=== PATIENT | male | born 1980 | race Caucasian/White ===

== ENCOUNTER 2016-09-06 02:36 | Emergency (ER) | payer MEDICAID ==
[2016-09-06 03:01] VITALS: BP 138/85; PULSE 101; RESP 18; TEMP 98.2; O2SAT 100
--- NOTE | 2016-09-06 03:04 | ED PDOC ---
HPI: Psych/Substance Abuse Time Seen by Provider: 09/06/16 02:41 Chief Complaint (Provider): intoxicated History Per: Patient History/Exam Limitations: no limitations Onset/Duration Of Symptoms: Mins Current Symptoms Are (Timing): Still Present Additional Complaint(s): 36yo male presents to the ED via EMS for eval of intoxication. Denies any medical or psychiatric complaints. Patient is in the company of a sober friend. Past Medical History Reviewed: Historical Data, Nursing Documentation, Vital Signs Vital Signs: Last Vital Signs Temp 98.2 F 09/06/16 02:57 Pulse 101 H 09/06/16 02:57 Resp 18 09/06/16 02:57 BP 138/85 09/06/16 02:57 Pulse Ox 100 09/06/16 02:57 - Medical History PMH: Depression Denies: Atrial Fibrillation, Cardia Arrhythmia, CHF, Diabetes, Hepatitis, HIV , HTN, Hypercholesterolemia, Mitral Valve Prolapse, Peripheral Edema, Chronic Kidney Disease, Seizures, Sexually Transmitted Disease - Surgical History Surgical History: No Surg Hx Denies: Pacemaker - Family History Family History: States: No Known Family Hx - Social History Current smoker - smoking cessation education provided: No Alcohol: Occasional Drugs: Denies - Home Medications Home Medications: Ambulatory Orders Medication Instructions Recorded buPROPion SR [Wellbutrin SR 150 MG] 150 mg PO DAILY #30 tab 08/25/14 - Allergies Allergies/Adverse Reactions: Allergies Allergy/AdvReac Type Severity Reaction Status Date / Time Penicillins Allergy SWELLING Verified 09/06/16 02:56 Review of Systems ROS Statement: Except As Marked, All Systems Reviewed And Found Negative Physical Exam - Reviewed Nursing Documentation Reviewed: Yes Vital Signs Reviewed: Yes - Physical Exam Appears: Positive for: Well, No Acute Distress Head Exam: Positive for: ATRAUMATIC, NORMAL INSPECTION, NORMOCEPHALIC Skin: Positive for: Normal Color, Warm, Dry Eye Exam: Positive for: Normal appearance, EOMI, PERRL ENT: Positive for: Normal ENT Inspection Neck: Positive for: Normal, Painless ROM, Supple Cardiovascular/Chest: Positive for: Regular Rate, Rhythm. Negative for: Murmur , Tachycardia Respiratory: Positive for: Normal Breath Sounds. Negative for: Wheezing, Respiratory Distress Gastrointestinal/Abdominal: Positive for: Normal Exam, Bowel Sounds, Soft. Negative for: Tenderness Back: Positive for: Normal Inspection Extremity: Positive for: Normal ROM. Negative for: Deformity, Swelling Neurologic/Psych: Positive for: Alert, Oriented (x3), Gait (steady ), Other ( clear speech ). Negative for: Motor/Sensory Deficits - ECG O2 Sat by Pulse Oximetry: 100 Pulse Ox Interpretation: Normal (RA) Medical Decision Making Medical Decision Makin: Impression: 36yo male presents for eval of intoxication Plan: Patient AAOx3 ambulating with steady gait and clear speech and stable for d/c in company of sober friend. Dx: alcohol use stable Scribe Attestation: Documented by Sandy Angel acting as a scribe for Christian Mack MD. Provider Scribe Attestation: All medical record entries made by the Scribe were at my direction and personally dictated by me. I have reviewed the chart and agree that the record accurately reflects my personal performance of the history, physical exam, medical decision making, and the department course for this patient. I have also personally directed, reviewed, and agree with the discharge instructions and disposition. Disposition - Clinical Impression Clinical Impression: Alcohol use - Patient ED Disposition Is Patient to be Admitted: No - Disposition Disposition: Routine/Home Disposition Time: 03:00 Condition: STABLE
== END 2016-09-06 03:13 | disposition home or self-care (01) ==
LOC: H.ER 02:36
DX: Z78.9 Other specified health status (principal); Z88.0 Allergy status to penicillin

== ENCOUNTER 2017-01-16 01:53 | Inpatient (IN) | payer MEDICAID ==
--- NOTE | 2017-01-16 02:17 | ED PDOC ---
HPI: Psych/Substance Abuse Time Seen by Provider: 01/16/17 01:59 Chief Complaint (Nursing): Psychiatric Evaluation Chief Complaint (Provider): Psychiatric Evaluation ED Caveat: Uncooperative Suicide/Self Injury Attempted (Context): Other (Jumping in front of cars) Additional History Per: EMS, Girlfriend, Law Enforcement Additional Complaint(s): 36 year old male brought in by [employer] and EMS presents to ED status post suicidal ideation and has a past medical history of depression. [employer] reports patient was attempting to jump in front of cars to commit suicide. Wide confirms that patient has attempted this before. Patient presents to ED in a state of agitation and refuses to answer questions. PCP: DARREN Past Medical History Reviewed: Historical Data, Nursing Documentation, Vital Signs Vital Signs: Last Vital Signs Temp 98.4 F 01/16/17 02:01 Pulse 100 H 01/16/17 02:01 Resp 18 01/16/17 02:01 BP 134/57 L 01/16/17 02:01 Pulse Ox 100 01/16/17 02:01 - Medical History PMH: Depression Denies: Atrial Fibrillation, Cardia Arrhythmia, CHF, Diabetes, Hepatitis, HIV , HTN, Hypercholesterolemia, Mitral Valve Prolapse, Peripheral Edema, Chronic Kidney Disease, Seizures, Sexually Transmitted Disease - Surgical History Surgical History: Denies: Pacemaker - Family History Family History: States: Unknown Family Hx - Home Medications Home Medications: Ambulatory Orders Medication Instructions Recorded buPROPion SR [Wellbutrin SR 150 MG] 150 mg PO DAILY #30 tab 08/25/14 - Allergies Allergies/Adverse Reactions: Allergies Allergy/AdvReac Type Severity Reaction Status Date / Time Penicillins Allergy SWELLING Verified 01/16/17 02:01 Review of Systems Review Of Systems: ROS cannot be obtained secondary to pt's inabilty to answer questions. (Patient is uncooperative) Physical Exam - Reviewed Nursing Documentation Reviewed: Yes Vital Signs Reviewed: Yes - Physical Exam Appears: Positive for: Non-toxic, No Acute Distress Head Exam: Positive for: ATRAUMATIC, NORMOCEPHALIC Skin: Positive for: Normal Color, Warm, Dry Eye Exam: Positive for: Normal appearance, EOMI, PERRL ENT: Positive for: Normal ENT Inspection Neck: Positive for: Normal, Painless ROM, Supple Cardiovascular/Chest: Positive for: Regular Rate, Rhythm, Tachycardia Respiratory: Positive for: Normal Breath Sounds. Negative for: Respiratory Distress Gastrointestinal/Abdominal: Positive for: Normal Exam, Soft. Negative for: Tenderness Back: Positive for: Normal Inspection Extremity: Positive for: Normal ROM. Negative for: Deformity Neurologic/Psych: Positive for: Alert, Oriented, Mood/Affect (agitated). Negative for: Motor/Sensory Deficits - Laboratory Results Result Diagrams: 01/16/17 02:37 01/16/17 02:37 - ECG O2 Sat by Pulse Oximetry: 100 (RA) Pulse Ox Interpretation: Normal Medical Decision Making Medical Decision Makin Initial impression: suicidal ideation, agitation Initial plan: * Acetaminophen * EtOH serum * Labs * UDrug screen * Salicylate * Ativan 2mg IM * Haldol 5mg IM * 1:1 OBS * ED OBS ADMISSION * UA All further documentation will take place in ED OBS section of the chart. Scribe Attestation: Documented by Rama Quezada acting as a scribe for Desmond Kelly MD. Scribe Attestation: All medical record entries made by the Scribe were at my direction and personally dictated by me. I have reviewed the chart and agree that the record accurately reflects my personal performance of the history, physical exam, medical decision making, and the department course for this patient. I have also personally directed, reviewed, and agree with the discharge instructions and disposition. ED OBSERVATION Date of observation admission: 01/16/17 Time of observation admission: 02:07 - Observation admission statement Patient is being placed in observation because:: ED OBS admission due to sedation because of agitation - Goals of Observation Goals of observation are:: sobriety - Progress Note Progress Note: 01/16/17 03:10 Patient is resting comfortably in room. Vitals stable. 01/16/17 04:41 Patient is resting comfortably in room. Vitals stable. 01/16/17 05:56 Patient resting comfortably. Vitals stable. 01/16/17 07:00 Patient will be signed out to Dr. Jean Baptiste pending sobriety and crisis evaluation. Disposition - Clinical Impression Clinical Impression: Depression, Alcohol abuse - Disposition Disposition Time: 02:07 Condition: IMPROVED Patient Signed Over To: Richard Jean Baptiste Jr. Handoff Comments: Pending sobriety and crisis evaluation - Pt Status Changed To: Hospital Disposition Of: Observation - POA Present On Arrival: None
[2017-01-16 02:40] LABS: BASO % 0.5 % (0.0-2.0); EOS % 0.7 % (0.0-4.0); HEMATOCRIT 47.8 % (35.0-51.0); LYMPH % 16.4 % (20.0-40.0); MEAN CELL VOLUME 93.2 fl (80.0-94.0); MEAN CORPUSCULAR HEMOGLOBIN 31.2 pg (27.0-31.0); MEAN CORPUSCULAR HGB CONC 33.4 g/dL (33.0-37.0); MEAN PLATELET VOLUME 8.6 fl (7.2-11.7); MONO # 0.5 K/uL (0.0-0.8); MONO % 7.4 % (0.0-10.0); NEUT # 4.6 K/uL (1.8-7.0); NRBC % 0.1 % (0.0-0.0); RED CELL DISTRIBUTION WIDTH 14.1 % (11.5-14.5); WHITE BLOOD COUNT 6.1 K/uL (4.8-10.8)
[2017-01-16 03:00] LABS: BLOOD UREA NITROGEN 8 mg/dl (9-20); GFR AFRICAN-AMERICAN > 60; GLUCOSE,RANDOM 106 mg/dL (75-110); POTASSIUM 3.3 MMOL/L (3.6-5.0); SODIUM 144 mmol/l (132-148)
[2017-01-16 03:01] LABS: ALCOHOL SERUM 237 mg/dl (0-10); CALCIUM 9.2 mg/dL (8.4-10.2); CARBON DIOXIDE 21 mmol/L (22-30); CHLORIDE 108 mmol/L (98-107)
--- NOTE | 2017-01-16 07:15 | ED PDOC ---
- Laboratory Results Result Diagrams: 01/16/17 02:37 01/16/17 02:37 - ECG O2 Sat by Pulse Oximetry: 100 (RA) Pulse Ox Interpretation: Normal Medical Decision Making Medical Decision Making: Time: 07:00 --Patient endorsed from Dr. Kelly to me. --Pending crisis evaluation once clinically sober. --Ed observations was ordered. All further documentation can be seen in ED Obs section of chart. --Pt is arousable w/ no complaints. Scribe Attestation: Documented by Etelvina Wilkins, acting as a scribe for Richard Jean Baptiste MD. Provider Scribe Attestation: All medical record entries made by the Scribe were at my direction and personally dictated by me. I have reviewed the chart and agree that the record accurately reflects my personal performance of the history, physical exam, medical decision making, and the department course for this patient. I have also personally directed, reviewed, and agree with the discharge instructions and disposition. Disposition - Clinical Impression Clinical Impression: Depression, Alcohol abuse - POA Present On Arrival: None - Disposition Disposition: Transfer of Care Disposition Time: 14:11 Condition: IMPROVED ED OBSERVATION Discharge: Yes Date of observation admission: 01/16/17 Time of observation admission: 02:07 - Observation admission statement Patient is being placed in observation because:: ETOH ingestion. - Goals of Observation Goals of observation are:: Pending clinical sobriety - Progress Note Progress Note: 01/16/17 08:30 --Patient resting comfortably, pending clinical sobriety to complete crisis evaluation. 01/16/17 10:10 --Patient resting comfortably, pending clinical sobriety to complete crisis evaluation. 01/16/17 11:30 --Patient resting comfortably, pending clinical sobriety to complete crisis evaluation. 01/16/17 13:00 --Patient resting comfortably, pending clinical sobriety to complete crisis evaluation. Physician Patient Turnover - . Patient Signed Over To: Spencer Lamb Handoff Comments: To follow up results of UA and UDS. Then [facility] screeners will assess the pt.
--- NOTE | 2017-01-16 14:12 | ED PDOC ---
- Laboratory Results Result Diagrams: 01/16/17 02:37 01/16/17 02:37 - ECG O2 Sat by Pulse Oximetry: 100 (RA) Pulse Ox Interpretation: Normal Medical Decision Making Medical Decision Makin:12 Patient signed out to me from Dr. Jean Baptiste. Pending [facility] screening. Vital signs are stable. Labs reviewed. In my opinion there are no current acute medical conditions that contraindicate the placement of this patient in a psychiatric unit. Disposition Counseled Patient/Family Regarding: Studies Performed, Diagnosis - Clinical Impression Clinical Impression: Depression, Alcohol abuse - POA Present On Arrival: None - Disposition Disposition: Admitted as In-Patient Disposition Time: 19:00 Condition: FAIR ED OBSERVATION Discharge: Yes Date of observation admission: 01/16/17 Time of observation admission: 02:07 - Observation admission statement Patient is being placed in observation because:: ED OBS admission due to sedation because of agitation - Goals of Observation Goals of observation are:: Sobriety - Progress Note Progress Note: 01/16/17 16:00 Patient is stable and resting comfortably. Pending [facility] screening. 01/16/17 17:35 Patient is stable and resting comfortably. Pending [facility] screening.
--- NOTE | 2017-01-16 14:30 | ED PDOC ---
- Laboratory Results Result Diagrams: 01/16/17 02:37 01/16/17 02:37 - ECG O2 Sat by Pulse Oximetry: 100 (RA) Disposition - Clinical Impression Clinical Impression: Depression, Alcohol abuse - Disposition Condition: IMPROVED ED OBSERVATION Discharge: Yes
[2017-01-16 18:14] LABS: RBC URINE 3 /hpf (0-3); URINE BACTERIA RARE (<OCC); URINE BILIRUBIN NEGATIVE (NEGATIVE); URINE BLOOD NEGATIVE (NEGATIVE); URINE COLOR AMBER (YELLOW); URINE GLUCOSE (UA) NEG (Normal); URINE KETONE NEGATIVE (NEGATIVE); URINE LEUKOCYTE ESTERASE NEG Leu/uL (Negative); URINE PROTEIN 30 mg/dL (NEGATIVE); URINE URIC ACID CRYSTALS RARE /hpf (<OCC); WBC URINE 2 /hpf (0-5)
[2017-01-16] MEDS ORDERED: Alum-Mag Hydrox-Simethicone Susp (30 mL) PO PRN (21:00)
[2017-01-16] MEDS ORDERED: DiphenhydrAMINE 50 mg/ml Inj IM PRN (21:00)
[2017-01-16] MEDS ORDERED: Magnesium Hydroxide Susp 30 ml UD PO PRN (21:00)
[2017-01-16 21:31] VITALS: O2SAT 100
--- NOTE | 2017-01-16 22:07 | PCM.BM ---
<Cat Cordero - Last Filed: 01/16/17 22:05> Treatment Plan Problems - Problems identified on initial assessmt Medication nonadherance Date Initiated: 01/16/17 Time Initiated: 22:05 Assessment reference: NA Status: Active Treatment assets and liabiliti Patient Assests: cooperative, ADL independent, physically healthy, negotiates basic needs Patient Liabilities: other (alcohol abuse) - Milieu Protocol Maintain good personal hygiene: daily Encourage regular showers, daily Remind patient to perform daily oral care, daily Assist patient to perform ADL's Maintain personal safety: every shift Educate patient to report safety concerns to staff, every shift Monitor environment for contraband/sharps Medication safety: Monitor for expected outcome, potential side effects: every shift, Assess barriers to learning: daily, Assess readiness for medication education: every shift <Charmaine Tineo - Last Filed: 01/19/17 10:37> Treatment assets and liabiliti Patient Assests: adapts well, cooperative, resourceful, self-reliant, ADL independent, physically healthy, negotiates basic needs, good past tx response Patient Liabilities: financial problems, relationship conflicts, substance abuse Family Contact Family involvement: Family/SO is involved Family contact: Patient agrees to contact, Family has been contacted by patient , Telephone contact initiated by staff Family contact name: Selina() ([phone]) Family contacted how many times per week?: 1 Family contact comment: Patient has provided consent for . has contacted chief writer to discuss precursors to hospitalization, patients progress on 3NP and discharge plan. Please see note. - Goals for Treatment Patient goals for treatment: Patient to continue stabilization on 3NP through medication management and group/supportive therapy. Patient to be encouraged to attend 3-6 groups/weekly to develop effective coping skills, improve insight and promote compliance, sobriety and self-esteem. Patient currently minimizing symptoms/ETOH abuse. Discharge/Continuing Care - Education Needs Education Needs: Family Medication, Family Diagnosis/Disease Process, Family Community resources, Family Aftercare Safety Plan, Patient Medication, Patient Diagnosis/Disease Process, Patient Coping Skills, Patient Community resources, Patient Aftercare Safety Plan - Discharge Discharge Criteria: Tolerates medication w/o severe side effects, Free of Suicidal thoughts, Free of agitation, No longer exhibiting s/s of withdrawal, Reduction of target symptoms Discharge to:: Home, With Family - Treatment Team Participation Discussed with Family/SO: No Was Patient/Family/SO present at Treatment Team Meeting: No
--- NOTE | 2017-01-17 12:29 | CP.PCM.CON ---
History of Present Illness - History of Present Illness History of Present Illness: Reason for Consult: per hospital protocol CC:depression HPI: 36 year old male with no past medical history admitted to psych for depression. No other complaints at this time. HD stable, NAD. ROS: per HPI, 12 systems reviewed and negative PMH: denies PSH: denies FH: denies SH: denies tobacco, ETOH, IVDU Meds: as below Allergies: NKDA Vitals: reviewed and currently stable Exam: GEN: WDWN, alert, cooperative HEENT: NCAT, PERRL, EOMI NECK: supple, no JVD, no lymphadenopathy CARDIAC: +S1S2 RRR LUNG: CTAB No WRR ABD: SOFT NT ND BSX4 NO MASSES NO HSM EXT: +pedal pulses, equal strength NEURO: AAOx3 SKIN warm, dry PSYCH normal mood, normal affect Labs: 01/16/17 02:37 01/16/17 02:37 Assessment and Plan: Depression Management per Psychiatry Team Past Patient History - Infectious Disease Hx of Infectious Diseases: None - Tetanus Immunizations Tetanus Immunization: Unknown - Past Social History Smoking Status: Heavy Smoker > 10 Cigarettes Daily - CARDIAC Hx Cardiac Disorders: No - PULMONARY Hx Respiratory Disorders: No - NEUROLOGICAL Hx Neurological Disorder: No - HEENT Hx HEENT Problems: No - RENAL Hx Chronic Kidney Disease: No - ENDOCRINE/METABOLIC Hx Endocrine Disorders: No - HEMATOLOGICAL/ONCOLOGICAL Hx Blood Disorders: No - INTEGUMENTARY Hx Dermatological Problems: No - MUSCULOSKELETAL/RHEUMATOLOGICAL Hx Musculoskeletal Disorders: No - GASTROINTESTINAL Hx Gastrointestinal Disorders: No - GENITOURINARY/GYNECOLOGICAL Hx Genitourinary Disorders: No - PSYCHIATRIC Hx Depression: Yes Hx Emotional Abuse: No Hx Physical Abuse: No Hx Substance Use: Yes (denies MJ use but tox + MJ) - SURGICAL HISTORY Hx Surgeries: No - ANESTHESIA Hx Anesthesia: No Hx Anesthesia Reactions: No Meds Allergies/Adverse Reactions: Allergies Allergy/AdvReac Type Severity Reaction Status Date / Time Penicillins Allergy SWELLING Verified 01/16/17 02:01 - Medications Medications: Current Medications Acetaminophen (Tylenol 325mg Tab) 650 mg PO Q4 PRN PRN Reason: T>101;headache;dizziness,pain Al Hydrox/Mg Hydrox/Simethicone (Maalox Plus 30 Ml) 30 ml PO Q4 PRN PRN Reason: Dyspepsia Diphenhydramine HCl (Benadryl) 50 mg IM Q6 PRN PRN Reason: Extrapyramidal S/S Unable PO Diphenhydramine HCl (Benadryl) 50 mg PO Q6 PRN PRN Reason: Extrapyramidal Symptoms Diphenhydramine HCl (Benadryl) 50 mg PO HS PRN PRN Reason: Sleep Haloperidol (Haldol) 5 mg PO Q4 PRN PRN Reason: Agitation Haloperidol Lactate (Haldol) 5 mg IM Q4 PRN PRN Reason: Agitation, Unable to Take PO Lorazepam (Ativan) 2 mg IM Q4 PRN PRN Reason: Anxiety/Agitation,Unable PO Lorazepam (Ativan) 2 mg PO Q4 PRN PRN Reason: Anxiety/Agitation Magnesium Hydroxide (Milk Of Magnesia) 30 ml PO HS PRN PRN Reason: Constipation Results - Vital Signs Recent Vital Signs: Last Vital Signs Temp 97.3 F L 01/17/17 09:00 Pulse 54 L 01/16/17 21:02 Resp 18 01/17/17 09:00 BP 120/70 01/17/17 09:00 Pulse Ox 100 01/16/17 21:31 - Labs Result Diagrams: 01/16/17 02:37 01/16/17 02:37 Labs: Laboratory Results - last 24 hr 01/17/17 08:03 Triglycerides 53 Cholesterol 137 LDL Cholesterol Direct 46 HDL Cholesterol 76 H
[2017-01-17 12:48] LABS: T4 8.64 ug/dl (5.5-11.0)
[2017-01-17 13:02] LABS: THYROID STIMULATING HORMONE 5.49 mIU/ML (0.46-4.68)
--- NOTE | 2017-01-17 17:59 | PCM.PSYCH ---
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 reports were of question as to whether to pt was having crisis after possible argument with ex . pt denies having any argument with ex . pt reports that has an ex of 16 years and then of 4 years both are . pt reports it was he who from both because of different outlooks on life. denies believing he has etoh problem, denies use of other substances. reports that was [place], graduated school, worked various jobs, most recent [employer]. Does admit stressors related to not always being able to provide for family as he would wish. Reports was living with mother due to separation. denies previous psychiatric treatment. Current Medications: Active Medications Generic Name Dose Route Start Last Admin Trade Name Bradleyq PRN Reason Stop Dose Admin Acetaminophen 650 mg 01/16/17 21:00 Tylenol 325mg Tab PO Q4 PRN T>101;headache;dizziness,pain Al Hydrox/Mg Hydrox/Simethicone 30 ml 01/16/17 21:00 Maalox Plus 30 Ml PO Q4 PRN Dyspepsia Diphenhydramine HCl 50 mg 01/16/17 21:00 Benadryl IM Q6 PRN Extrapyramidal S/S Unable PO Diphenhydramine HCl 50 mg 01/16/17 21:00 Benadryl PO Q6 PRN Extrapyramidal Symptoms Diphenhydramine HCl 50 mg 01/16/17 21:07 Benadryl PO HS PRN Sleep Haloperidol 5 mg 01/16/17 21:00 Haldol PO Q4 PRN Agitation Haloperidol Lactate 5 mg 01/16/17 21:00 Haldol IM Q4 PRN Agitation, Unable to Take PO Lorazepam 2 mg 01/16/17 21:00 Ativan IM Q4 PRN Anxiety/Agitation,Unable PO Lorazepam 2 mg 01/16/17 21:00 Ativan PO Q4 PRN Anxiety/Agitation Magnesium Hydroxide 30 ml 01/16/17 21:00 Milk Of Magnesia PO HS PRN Constipation Nicotine 1 patch 01/17/17 15:45 Nicoderm Cq TD DAILY YOANDY Past Psychiatric History - Past Psychiatric History Prior Professional Help: denies History of Abuse: denies History of ETOH/Drug Use: social 1-2 drinks 2-3 x week History of Family Illness: denies Pertinent Medical Hx (Current Medical&Sleep Prob, Allergies): Allergies Allergy/AdvReac Type Severity Reaction Status Date / Time Penicillins Allergy SWELLING Verified 01/16/17 02:01 buPROPion SR [Wellbutrin SR 150 MG] 150 mg PO DAILY #30 tab 08/25/14 Review of Systems - Psychiatric Additional comments: insomnia Mental Status Examination - Personal Presentation Personal Presentation: Looks stated age - Affect Affect: Broad - Motor Activity Motor Activity: Calm - Reliability in Providing Information Reliability in Providing Information: Fair - Speech Speech: Organized - Mood Additional comments: euthymic - Formal Thought Process Formal Thought Process: No Impairment - Obsessions/Compulsions Obsessions: No Compulsions: No - Cognitive Functions Orientation: Person, Place, Situation, Time Sensorium: Alert Judgement: Imparied, as evidence by: Other - Risk Additional comments: ?self harm - Strength & Assets Inventory Strength & Assets Inventory: Cooperative - Limitations Additional comments: financial stressors DSM 5 DX - DSM 5 DSM 5 Diagnosis: adjustment disorder substance induced mood disorder overdose ?accidental - Recommended/Plan of Treatment Treatment Recommendations and Plan of Treatment: admission per attending vitals signs and clinical observation per protocol and per status hospitalist consult prns per unit protocol pt defers antidepressants team to attempt to obtain clinical information collaborative information pt verbally agreeable for staff to arrange family meeting with mother/ex ( reportedly were ones to witness initial presentation_ discharge planning in progress Projected ELOS: 3-5 days Prognosis: guarded Discharge Plan and Discharge Criteria: safety - Smoking Cessation Smoking Cessation Initiated: No Reason for not providing: defers
--- NOTE | 2017-01-18 17:23 | PCM.PYCHPN ---
Psychiatric Progress Note - Psychiatric Progress Note Patient seen today, length of contact: chart reviewed case discussed with team Patient Chief Complaint: admits that he had stopped his medication for depression approximately 3-4 weeks before admission because he thought that he was doing better. reports that his primary care doctor changed a previous medication for depression because it had made him tired and that he needed to work a second job. reports that he was prescribed lexapro (escitalopram) and that it had been working. denied complaints of side effects. does speak of having depression and that he in fact attempted to harm himself by strangulation/hanging-does report remorse and that he wants to live for his family/children. gives more detail as to drinking and smoking weed with friends and becoming upset and thinking about walking in front of traffic-does not know why. vaguely remembers details of being retrained and receiving ativan in er. pt. is verbally agreeable to restart lexapro (ecitalopram)-reviewed with pt that since he has been off it for several weeks will have to to be restarted-pt is verbally agreeable. staff report that pt has been adherent with medications, did have a family visit today reported as being positive. 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 staff report pt has been adherent with unit based activites routine. Problems Identified/Issues Discussed: alteration in mood polysubstance use-etoh, thc, nicotine history of suicide attempt-hanging Medical Problems: per chart Diagnostic Results: per psychiatry per medicine, per nursing per social work DSM 5 Symptoms Update: decreased mood, anhedonia, agitation (upon admission er-thc/etoh) Medication Change: Yes (lexapro 10mg po day) Medical Record Reviewed: Yes Consults ordered or reviewed: pt seen by hospitalist Mental Status Examination - Cognitive Function Orientation: Person, Place, Situation, Time Memory: Intact (more detail more freely offered today) Attention: WNL Concentration: WNL Association: WNL Fund of Knowledge: WNL Decription of patient's judgement and insights: impaired - Mood Mood: Depressed - Affect Additional comments: somewhat constricted - Speech Speech: Soft - Formal Thought Process Formal Thought Process: No Impairment - Homicidal Ideation Homicidal Ideation: No Goal/Treatment Plan - Goal/Treatment Plan Progress Toward Problem(s) and Goals/Treatment Plan: inpt milieu vitals signs and clinical observation per protocol and per status hospitalist following pt prns per unit protocol start lexapro 10mg po day first dose today team to attempt to obtain clinical information collaborative information discharge planning in progress Estimated Date of D/C: 01/20/17 - Smoking Cessation Smoking Cessation Initiated: Yes
[2017-01-19 09:08] VITALS: BP 111/83; PULSE 67; RESP 18; TEMP 96.4
--- NOTE | 2017-01-19 10:51 | PCM.PYCHPN ---
Psychiatric Progress Note - Psychiatric Progress Note Patient seen today, length of contact: in treatment team Patient Chief Complaint: i just woke up in the ER Problems Identified/Issues Discussed: pt feels the lexapro is "right for me" he reports poor sleep. he denies that he has a trouble controlling his alcohol intake and states "i'm not an alcoholic" he is agreeable to follow up with outpt referral. Medication Change: Yes (doxepin hs for sleep) Medical Record Reviewed: Yes Mental Status Examination - Cognitive Function Orientation: Person, Place, Situation, Time Memory: Intact Attention: WNL Concentration: WNL Association: WNL Fund of Knowledge: [facility] Decription of patient's judgement and insights: fair - Mood Mood: Depressed - Affect Affect: Broad - Speech Speech: Soft - Formal Thought Process Formal Thought Process: No Impairment - Suicidal Ideation Suicidal Ideation: No Plan: denies - Homicidal Ideation Homicidal Ideation: No Goal/Treatment Plan - Goal/Treatment Plan Need for Continued Stay: Remain at risks for inpatient hospitalization, Severe functional impairment Progress Toward Problem(s) and Goals/Treatment Plan: major depression alcohol use disorder cannabis use will continue lexapro doxepin for insomnia discharge tomorrow with f/u appointment Estimated Date of D/C: 01/20/17
--- NOTE | 2017-01-19 12:28 | PCM.PYCHDC ---
Mental Status Examination - Mental Status Examination Orientation: Person, Place, Situation, Time Memory: Intact Mood: Neutral Affect: Broad Speech: Appropriate Attention: WNL Concentration: WNL Association: WNL Fund of Knowledge: WNL Formal Thought Process: No Impairment Description of patient's judgement and insight: fair Psychotic Thoughts and Behaviors: pt denies any si/hi Suicidal Ideation: No Current Homicidal Ideation?: No Discharge Summary - Discharge Note Reason for Hospitalization: pt was intoxicated and made statements that were concerning to his family Psychiatric History (includes Medical, Family, Personal Hx): history of depression, alcohol use disorder Laboratory Data: Abnormal Lab Results 01/17/17 01/17/17 08:03 15:30 Hemoglobin A1c 5.3 RPR Nonreactive Consultations:: List each consultation separately and include: 1. Reason for request. 2. Findings. 3. Follow-up Summary of Hospital Course include:: 1. Description of specific treatment plan utilized for patients during their course of treatmen. 2. Summarize the time- course for resolution of acute symptoms and/or regressed behaviors. 3. Describe issues identified and worked on during hospitalization. 4. Describe medication utilized. 5. Describe medical problems identified and treated. 6. Reassessment of suicide risk Summary of Hospital Course: admitted to [facility] and oriented to the unit. placed on routine safety protocols. started on lexapro by covering [employer]. did not have any alcohol withdrawal symptoms. was agreeable to follow up with outpt treatment and was attending groups on the unit and was socializing with peers. at the time of discharge the pt was denying any suicidal or homicidal thoughts. - Final Diagnosis (DSM 5) Condition upon Discharge: FAIR DSM 5: major depression recurrent moderate alcohol use disorder Disposition: HOME/ ROUTINE Follow-up Treatment Plan: follow up with aftercare as directed take medications as prescribed do not use alcohol, tobacco or other illicit substances attend AA meetings daily call 911 if any suicidal or homicidal thoughts Prescriptions/Medication Reconciliation: Escitalopram [Lexapro] 10 mg PO DAILY #30 tab Nicotine 21 mg/24 hr [Nicoderm Cq] 1 patch TD DAILY #30 patch - Smoking Cessation Smoking Cessation Medication prescribed: Yes - Antipsychotic Medications Pt discharged on 2 or more routine antipsychotic medications: No
== END 2017-01-19 15:23 | disposition home or self-care (01) | DRG 430 ==
LOC: H.ER 01:53 → H.EROBSV 02:07 → OBSVTOIN 19:20 → H.ERHOLD 19:27 → H.PSYCH 20:28
PROVIDERS: ADMIT Psychiatry & Neurology Psychiatry; ATTEND Psychiatry & Neurology Psychiatry
PROC: GZHZZZZ Group Psychotherapy (ICD-10-PCS; principal; 2017-01-16)
PROC: GZ58ZZZ Individual Psychotherapy, Cognitive-Behavioral (ICD-10-PCS; 2017-01-16)
DX: F33.1 Major depressive disorder, recurrent, moderate (principal); R45.851 Suicidal ideations; F10.129 Alcohol abuse with intoxication, unspecified; Y90.7 Blood alcohol level of 200-239 mg/100 ml; F12.90 Cannabis use, unspecified, uncomplicated; G47.00 Insomnia, unspecified; F17.210 Nicotine dependence, cigarettes, uncomplicated; Z91.5 Personal history of self-harm; Z88.0 Allergy status to penicillin